=== PATIENT | female | born 1945 | race Caucasian/White ===

== ENCOUNTER 2023-10-31 12:00 | Outpatient (RCR) | payer MEDICARE, BC, SELFPAY ==
--- NOTE | 2023-09-01 13:49 | ONC.NURNOTE ---
1. Orders for PET/CT faxed to [facility]. They will call patient to schedule. 2. Request for Oncotype testing completed. Patient has follow up 3/4 to review results and discuss next steps.
--- NOTE | 2023-09-26 16:37 | ONC.NURNOTE ---
Addendum entered by Kailey Lama 09/28/23 13:36: Call to [facility] to check on the status of scheduling the bone or lymph node biopsy. I was directed to leave a message for the aerospace project manager of imaging to see if they would be able to perform this procedure there. Will await a return call. Original Note: I called patient today to re-discuss the need for a biopsy to further evaluate the PET/CT findings (Dr. Gonzalez had originally spoken with the patient on 09/20). Patient had a lot of questions about why we need the biopsy and what we will do with this information. I explained to her that the PET/CT showed areas of concern for metastatic disease and we can't exclude a secondary malignancy. This information is very important for helping us know how best to treat her cancer. I explained that we would want to get this information MELISA but patient states that she has many other appointments and will likely try to get it done in a few weeks. Patient would like to have the biopsy done with Dr. Esqueda at [facility]. Orders and records faxed. Patient also requested a copy of the PET/CT report which I mailed to her. Multiple times patient reports ongoing pain in her right shoulder and neck. She is taking Tylenol and Advil around the clock with no relief. She denied my offer to speak with Dr. Gonzalez for something stronger to manage her pain. I encouraged Jyothi to call with questions and concerns and informed her that we would be in touch to schedule follow up once we know when the biopsy will take place.
--- NOTE | 2023-09-29 14:39 | ONC.NURNOTE ---
I received a call from [facility] front desk manager Vinod, , to discuss our request for a biopsy. Vinod said that DR. Esqueda, the radiologist, reviewed the recent PET/CT and feels that he can biopsy a lymph node. Unfortunately, their first availability is 10/11. I called Jyothi to discuss this and she states that she does not want to schedule any oncology related appointments until she meets with her PCP on 10/13. I offered to call her PCP to assist with expediting this appointment and she did not wish to change it because she already had transportation arranged. I also offered to arrange the biopsy to be done at a different location and patient declined. I explained that until we have this biopsy result, it is difficult to give her additional information about treatments, prognosis, etc. Patient states she understands. [facility] will reach out to patient to schedule a biopsy for 10/18 (they are only done weekly on Wednesdays). I will call patient to schedule follow up with Dr. Gonzalez once the biopsy date and time are confirmed.
--- NOTE | 2023-10-10 13:55 | ONC.NURNOTE ---
Call to patient to discuss follow up. Patient declines offered appointment of 10/25 to review biopsy results. 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 Patient shares that she is very frustrated with her declining health and quality of life. I again re-iterated the importance of getting this biopsy so that we can determine a diagnosis and treatment plan. Per her request, appointment was rescheduled to 11/06.
--- NOTE | 2023-10-24 15:38 | ONC.NURNOTE ---
Conference call made to patient with Dr. Gonzalez to discuss the results her her lymph node biopsy. Patient informed it was positive for metastatic breast cancer both in the FNA sample and the core biopsy sample. We offered patient an appointment to come to clinic tomorrow to discuss results and plan of care. Patient is unable to come to clinic tomorrow. Appointment scheduled for 10/30 at noon with a virtual visit. Patient verbalizes understanding.
--- NOTE | 2023-11-16 14:37 | ONC.NURNOTE ---
Call to patient for an update on her condition. At her last visit, patient had expressed that she did not want to make any treatment decisions until she had met with her PCP Dr. Evans. Unfortunately, her PCP is on a medical leave so she has been unable to secure an appointment. She does have one scheduled for 11/24. Overall, patient feels that the Fentanyl patch is helping with her pain. She is needing very minimal amounts of breakthrough pain medication (Oxycodone and Tylenol). She is requesting a re-fill as she is applying the last patch today. We talked again about her goals of care and she is becoming more interested in the idea of hospice care. She does not feel that she could tolerate the treatments and the idea of frequent doctor visits, labs and scans feels overwhelming to her. I told her that I would check back in with her on 11/27 in follow up to her Dr. Evans appointment. Patient verbalizes understanding.
== END 2024-02-27 23:59 | disposition home or self-care (01) ==
LOC: CCIC 12:00
PROVIDERS: PCP Internal Medicine; Visit Provider Internal Medicine Hematology & Oncology
DX: C50.911 Malignant neoplasm of unspecified site of right female breast (principal); Z17.0 Estrogen receptor positive status [ER+]; Z72.0 Tobacco use; R63.4 Abnormal weight loss
CPT/HCPCS: 99202; 99205; 99215; G0463